=== PATIENT | male | born 1950 | race Caucasian/White ===

== ENCOUNTER 2023-05-21 16:21 | Emergency (ER) | payer OTHER ==
[2023-05-21 16:58] VITALS: BMI 33.4
[2023-05-21] MEDS ORDERED: SODIUM CHLORIDE 0.9% 500 ML INFUS.BAG IV ONE (17:35)
[2023-05-21 18:28] LABS: BASO % 0.6 % (0-2.0); EOS % 0.5 % (0-4.5); HEMATOCRIT 44.7 % (35.4-49); HEMOGLOBIN 15.7 GM/dL (11.7-16.9); LYMPH % 24.8 % (8-40); MCH 30.1 pg (25.7-33.7); MCHC 35.1 g/dl (32.0-35.9); MEAN CELL VOLUME 85.6 fl (80-96); MEAN PLT VOLUME 7.8 fl (7.5-11.1); MONO % 5.4 % (3.8-10.2); NEUT % 68.7 % (42.8-82.8); PLATELET COUNT 290 10^3/uL (134-434); RBC 5.22 M/mm3 (4.00-5.60); RDW 13.5 % (11.9-15.9); WHITE BLOOD COUNT 10.9 K/mm3 (4.0-10.0)
[2023-05-21 18:30] LABS: INR 1.09 (0.83-1.09); PROTHROMBIN TIME (PATIENT) 12.6 SEC (9.7-13.0)
[2023-05-21 18:32] LABS: ACTIVATED PTT 34.4 SECONDS (25.2-36.5)
[2023-05-21 18:37] LABS: VENOUS BASE EXCESS 1.2 mmol/L (-2-2); VENOUS PCO2 45.9 mmHg (38-52); VENOUS PH 7.386 (7.310-7.410)
[2023-05-21 18:44] LABS: POTASSIUM 4.1 mmol/L (3.5-5.1)
[2023-05-21 18:47] LABS: ALBUMIN 3.7 g/dl (3.4-5.0); BLOOD UREA NITROGEN 10.3 mg/dL (7-18)
[2023-05-21 18:50] LABS: CREATININE 0.7 mg/dL (0.55-1.3)
[2023-05-21 18:51] LABS: TOT PROT 7.5 g/dl (6.4-8.2)
[2023-05-21 18:53] LABS: BILIRUBIN,TOTAL 0.4 mg/dL (0.2-1)
[2023-05-21 19:04] LABS: URINE APPEARANCE CLEAR; URINE BILIRUBIN NEGATIVE (NEGATIVE); URINE COLOR YELLOW; URINE GLUCOSE (UA) 2+ (NEGATIVE); URINE KETONE NEGATIVE (NEGATIVE); URINE LEUK ESTERASE NEGATIVE (NEGATIVE); URINE NITRITE NEGATIVE (NEGATIVE); URINE PROTEIN NEGATIVE (NEGATIVE); URINE UROBILINOGEN 0.2 mg/dL (0.2-1.0)
[2023-05-21 19:09] VITALS: TEMP 98.4
[2023-05-21 20:54] VITALS: BP 161/131; RESP 20
[2023-05-21 20:55] VITALS: PULSE 89
== END 2023-05-21 21:56 | disposition left against medical advice (07) ==
LOC: JER 16:21
DX: R41.82 Altered mental status, unspecified (principal); E11.9 Type 2 diabetes mellitus without complications; I10 Essential (primary) hypertension; R35.0 Frequency of micturition; N39.498 Other specified urinary incontinence; Z20.822 Contact with and (suspected) exposure to COVID-19
CPT/HCPCS: 0241U-QW; 36415; 70450-TC; 71045-TC-FY; 72131-TC; 80053; 81003; 82553; 82803; 82962; 83605; 85025; 85610; 85730; 86850; 86900; 86901; 87040; 87086; 93005; 93010; 99285-25

== ENCOUNTER 2023-05-28 08:59 | Inpatient (IN) | payer OTHER ==
[2023-05-28 11:20] LABS: BASO % 0.9 % (0-2.0); EOS % 0.9 % (0-4.5); HEMATOCRIT 47.8 % (35.4-49); LYMPH % 35.4 % (8-40); MCHC 33.5 g/dl (32.0-35.9); MEAN CELL VOLUME 89.6 fl (80-96); MEAN PLT VOLUME 8.5 fl (7.5-11.1); MONO % 5.7 % (3.8-10.2); NEUT % 57.1 % (42.8-82.8); PH,URINE 5.5 (5.0-8.0); PLATELET COUNT 254 10^3/uL (134-434); RBC 5.34 M/mm3 (4.00-5.60); RDW 13.2 % (11.9-15.9); URINE APPEARANCE CLEAR; URINE BILIRUBIN NEGATIVE (NEGATIVE); URINE COLOR YELLOW; URINE GLUCOSE (UA) 1+ (NEGATIVE); URINE KETONE NEGATIVE (NEGATIVE); URINE LEUK ESTERASE NEGATIVE (NEGATIVE); URINE NITRITE NEGATIVE (NEGATIVE); URINE PROTEIN NEGATIVE (NEGATIVE); URINE UROBILINOGEN 0.2 mg/dL (0.2-1.0); WHITE BLOOD COUNT 8.3 K/mm3 (4.0-10.0)
[2023-05-28 11:27] LABS: INR 1.03 (0.83-1.09)
[2023-05-28 11:29] LABS: ACTIVATED PTT 37.4 SECONDS (25.2-36.5)
[2023-05-28 11:47] LABS: POTASSIUM 4.5 mmol/L (3.5-5.1)
[2023-05-28 11:48] LABS: PHOSPHOROUS 3.4 mg/dL (2.5-4.9)
[2023-05-28 11:49] LABS: ALBUMIN 3.9 g/dl (3.4-5.0); CALCIUM 8.9 mg/dL (8.5-10.1)
[2023-05-28 11:50] LABS: BLOOD UREA NITROGEN 7.6 mg/dL (7-18)
[2023-05-28 11:52] LABS: CREATININE 0.8 mg/dL (0.55-1.3)
[2023-05-28 11:54] LABS: BILIRUBIN,TOTAL 0.6 mg/dL (0.2-1); TOT PROT 7.9 g/dl (6.4-8.2)
[2023-05-28] MEDS ORDERED: ENOXAPARIN NA (PORCINE) 40 MG/0.4 ML DISP.SYRIN SQ ONE (13:14)
[2023-05-28] MEDS ORDERED: LOSARTAN POTASSIUM 50 MG TABLET PO ONE (13:30)
[2023-05-28] MEDS: PANTOPRAZOLE 40 MG TABLET PO SCH (13:51)
[2023-05-28] MEDS: ENOXAPARIN NA (PORCINE) 40 MG/0.4 ML DISP.SYRIN SQ SCH (13:51)
[2023-05-28] MEDS ORDERED: INSULIN (NOVOLOG) ASPART 100 UNITS/ML 10ML VIAL ONE (18:17)
[2023-05-28] MEDS: INSULIN SLIDING SCALE (NOVOLOG) 1 VIAL SQ SCH (18:33)
[2023-05-28] MEDS ORDERED: MELATONIN 5 MG TABLETS ONE (21:45)
[2023-05-28] MEDS ORDERED: MELATONIN 5 MG TABLETS PO ONE (21:45)
[2023-05-28] MEDS: LOSARTAN POTASSIUM 50 MG TABLET PO SCH (23:12)
[2023-05-29 00:50] VITALS: BMI 31.9
[2023-05-29] MEDS ORDERED: amLODIPine BESYLATE 10 MG TABLET (FP) PO ONE (06:35)
[2023-05-29] MEDS ORDERED: LOSARTAN POTASSIUM 50 MG TABLET PO SCH (10:00)
[2023-05-29] MEDS ORDERED: amLODIPine BESYLATE 10 MG TABLET (FP) PO SCH (10:00)
[2023-05-29] MEDS: LOSARTAN POTASSIUM 50 MG TABLET PO SCH ×2 (10:20→21:53)
[2023-05-29] MEDS: ENOXAPARIN NA (PORCINE) 40 MG/0.4 ML DISP.SYRIN SQ SCH (10:20)
[2023-05-29] MEDS: PANTOPRAZOLE 40 MG TABLET PO SCH (10:20)
[2023-05-29] MEDS: INSULIN SLIDING SCALE (NOVOLOG) 1 VIAL SQ SCH ×2 (12:01→17:39)
[2023-05-29] MEDS: LORazepam 2 MG/ML SDV VIAL IVPUSH PRN (14:43)
[2023-05-29] MEDS: TAMSULOSIN HCL 0.4 MG CAP PO SCH (21:53)
[2023-05-30] MEDS: INSULIN SLIDING SCALE (NOVOLOG) 1 VIAL SQ SCH ×3 (07:43→17:18)
[2023-05-30 08:36] LABS: CHOLESTEROL 215 mg/dL (50-200)
[2023-05-30 08:38] LABS: LDL CHOLESTEROL (ONLY SJRH) 151 mg/dL (5-100)
[2023-05-30 08:39] LABS: HDL CHOLESTEROL 42 mg/dL (40-60)
[2023-05-30] MEDS: PANTOPRAZOLE 40 MG TABLET PO SCH (09:54)
[2023-05-30] MEDS: ENOXAPARIN NA (PORCINE) 40 MG/0.4 ML DISP.SYRIN SQ SCH (09:54)
[2023-05-30] MEDS: amLODIPine BESYLATE 10 MG TABLET (FP) PO SCH (09:55)
[2023-05-30] MEDS: LOSARTAN 50MG/HCTZ 12.5MG 1 TAB PO SCH ×2 (09:55→21:43)
[2023-05-30] MEDS: ATORVASTATIN CA 40 MG TABLET (FP) PO SCH (21:43)
[2023-05-30] MEDS: TAMSULOSIN HCL 0.4 MG CAP PO SCH (21:43)
[2023-05-31] MEDS: MELATONIN 5 MG TABLETS PO PRN ×2 (00:25→22:14)
[2023-05-31] MEDS: LORazepam 2 MG/ML SDV VIAL IVPUSH PRN (00:25)
[2023-05-31] MEDS: INSULIN SLIDING SCALE (NOVOLOG) 1 VIAL SQ SCH ×3 (06:47→23:23)
[2023-05-31] MEDS ORDERED: INSULIN SLIDING SCALE (NOVOLOG) 1 VIAL SQ SCH (11:00)
[2023-05-31] MEDS: ENOXAPARIN NA (PORCINE) 40 MG/0.4 ML DISP.SYRIN SQ SCH (11:52)
[2023-05-31] MEDS: PANTOPRAZOLE 40 MG TABLET PO SCH (11:52)
[2023-05-31] MEDS: amLODIPine BESYLATE 10 MG TABLET (FP) PO SCH (11:53)
[2023-05-31] MEDS: LOSARTAN 50MG/HCTZ 12.5MG 1 TAB PO SCH ×2 (11:54→22:14)
[2023-05-31 12:20] LABS: BASO % 0.4 % (0-2.0); EOS % 0.3 % (0-4.5); HEMOGLOBIN 15.9 GM/dL (11.7-16.9); LYMPH % 22.5 % (8-40); MCH 30.3 pg (25.7-33.7); MCHC 35.4 g/dl (32.0-35.9); MEAN CELL VOLUME 85.6 fl (80-96); MEAN PLT VOLUME 8.3 fl (7.5-11.1); MONO % 8.1 % (3.8-10.2); NEUT % 68.7 % (42.8-82.8); PLATELET COUNT 302 10^3/uL (134-434); RBC 5.25 M/mm3 (4.00-5.60); RDW 13.3 % (11.9-15.9); WHITE BLOOD COUNT 12.9 K/mm3 (4.0-10.0)
[2023-05-31 15:29] LABS: URINE APPEARANCE CLOUDY; URINE BILIRUBIN 1+ (NEGATIVE); URINE COLOR DK YELLOW; URINE GLUCOSE (UA) 2+ (NEGATIVE); URINE KETONE TRACE (NEGATIVE); URINE LEUK ESTERASE NEGATIVE (NEGATIVE); URINE NITRITE NEGATIVE (NEGATIVE); URINE PROTEIN TRACE (NEGATIVE)
[2023-05-31] MEDS ORDERED: INSULIN (LEVEMIR) 100 UNITS/ML UNITS SQ SCH (22:00)
[2023-05-31] MEDS: ATORVASTATIN CA 40 MG TABLET (FP) PO SCH (22:13)
[2023-05-31] MEDS: TAMSULOSIN HCL 0.4 MG CAP PO SCH (22:14)
[2023-06-01] MEDS: INSULIN (LEVEMIR) 100 UNITS/ML UNITS SQ SCH ×2 (06:32→22:15)
[2023-06-01] MEDS: INSULIN SLIDING SCALE (NOVOLOG) 1 VIAL SQ SCH ×4 (06:33→22:13)
[2023-06-01] MEDS ORDERED: QUEtiapine FUMARATE 25 MG TABLET PO SCH (10:00)
[2023-06-01] MEDS: ENOXAPARIN NA (PORCINE) 40 MG/0.4 ML DISP.SYRIN SQ SCH (10:01)
[2023-06-01] MEDS: PANTOPRAZOLE 40 MG TABLET PO SCH (10:01)
[2023-06-01 10:23] LABS: BASO % 0.8 % (0-2.0); EOS % 0.4 % (0-4.5); HEMATOCRIT 43.3 % (35.4-49); HEMOGLOBIN 15.4 GM/dL (11.7-16.9); LYMPH % 25.1 % (8-40); MCH 30.7 pg (25.7-33.7); MCHC 35.6 g/dl (32.0-35.9); MEAN CELL VOLUME 86.1 fl (80-96); MEAN PLT VOLUME 8.6 fl (7.5-11.1); MONO % 8.9 % (3.8-10.2); NEUT % 64.8 % (42.8-82.8); PLATELET COUNT 333 10^3/uL (134-434); RBC 5.03 M/mm3 (4.00-5.60); RDW 13.6 % (11.9-15.9); WHITE BLOOD COUNT 12.7 K/mm3 (4.0-10.0)
[2023-06-01] MEDS: LOSARTAN 50MG/HCTZ 12.5MG 1 TAB PO SCH ×3 (10:46→17:54)
[2023-06-01 11:17] LABS: ERYTHROCYTE SEDIMENTATION RATE 62 mm/hr (0-20)
[2023-06-01] MEDS ORDERED: INSULIN SLIDING SCALE (NOVOLOG) 1 VIAL SQ ONE (11:51)
[2023-06-01] MEDS ORDERED: MINERAL OIL ENEMA 133 ML ENEMA RC ONE (19:36)
[2023-06-01] MEDS: POLYETHYLENE GLYCOL (HEALTHYLAX) 3350 17 GM PACKET PO SCH ×2 (20:23→22:23)
[2023-06-01] MEDS: ATORVASTATIN CA 40 MG TABLET (FP) PO SCH (22:23)
[2023-06-01] MEDS: OLANZapine 5 MG TABLET PO SCH (22:23)
[2023-06-01] MEDS: TAMSULOSIN HCL 0.4 MG CAP PO SCH (22:23)
[2023-06-02] MEDS: INSULIN SLIDING SCALE (NOVOLOG) 1 VIAL SQ SCH ×4 (06:06→23:03)
[2023-06-02] MEDS: INSULIN (LEVEMIR) 100 UNITS/ML UNITS SQ SCH ×2 (06:08→23:02)
[2023-06-02 09:46] LABS: BASO % 0.7 % (0-2.0); EOS % 1.5 % (0-4.5); HEMATOCRIT 45.8 % (35.4-49); MCH 30.6 pg (25.7-33.7); MCHC 34.9 g/dl (32.0-35.9); MEAN CELL VOLUME 87.6 fl (80-96); MEAN PLT VOLUME 8.7 fl (7.5-11.1); NEUT % 54.8 % (42.8-82.8); PLATELET COUNT 250 10^3/uL (134-434); RBC 5.23 M/mm3 (4.00-5.60); RDW 13.5 % (11.9-15.9); WHITE BLOOD COUNT 9.7 K/mm3 (4.0-10.0)
[2023-06-02] MEDS: LOSARTAN 50MG/HCTZ 12.5MG 1 TAB PO SCH ×2 (10:00→17:45)
[2023-06-02] MEDS: POLYETHYLENE GLYCOL (HEALTHYLAX) 3350 17 GM PACKET PO SCH ×2 (10:01→21:31)
[2023-06-02] MEDS: ENOXAPARIN NA (PORCINE) 40 MG/0.4 ML DISP.SYRIN SQ SCH (10:01)
[2023-06-02] MEDS: PANTOPRAZOLE 40 MG TABLET PO SCH (10:01)
[2023-06-02] MEDS: TAMSULOSIN HCL 0.4 MG CAP PO SCH (21:33)
[2023-06-02] MEDS: ASCORBIC ACID 500 MG TABLET (FP) PO SCH (21:34)
[2023-06-02] MEDS: OLANZapine 5 MG TABLET PO SCH (21:34)
[2023-06-02] MEDS: ATORVASTATIN CA 40 MG TABLET (FP) PO SCH (21:38)
[2023-06-03] MEDS: INSULIN SLIDING SCALE (NOVOLOG) 1 VIAL SQ SCH ×4 (06:36→22:13)
[2023-06-03] MEDS: INSULIN (LEVEMIR) 100 UNITS/ML UNITS SQ SCH ×2 (06:37→22:14)
[2023-06-03] MEDS: LOSARTAN 50MG/HCTZ 12.5MG 1 TAB PO SCH ×2 (08:40→18:33)
[2023-06-03] MEDS: PANTOPRAZOLE 40 MG TABLET PO SCH (09:25)
[2023-06-03] MEDS: ASCORBIC ACID 500 MG TABLET (FP) PO SCH ×2 (09:25→22:03)
[2023-06-03] MEDS: ENOXAPARIN NA (PORCINE) 40 MG/0.4 ML DISP.SYRIN SQ SCH (09:25)
[2023-06-03] MEDS: POLYETHYLENE GLYCOL (HEALTHYLAX) 3350 17 GM PACKET PO SCH ×2 (09:28→22:04)
[2023-06-03 10:03] LABS: BASO % 0.5 % (0-2.0); EOS % 0.5 % (0-4.5); HEMATOCRIT 49.4 % (35.4-49); LYMPH % 23.8 % (8-40); MCH 30.1 pg (25.7-33.7); MCHC 34.5 g/dl (32.0-35.9); MONO % 7.4 % (3.8-10.2); NEUT % 67.8 % (42.8-82.8); PLATELET COUNT 311 10^3/uL (134-434); RBC 5.67 M/mm3 (4.00-5.60); RDW 13.3 % (11.9-15.9); WHITE BLOOD COUNT 10.7 K/mm3 (4.0-10.0)
[2023-06-03 10:59] LABS: ERYTHROCYTE SEDIMENTATION RATE 58 mm/hr (0-20)
[2023-06-03] MEDS: OLANZapine 5 MG TABLET PO SCH (22:03)
[2023-06-03] MEDS: ATORVASTATIN CA 40 MG TABLET (FP) PO SCH (22:03)
[2023-06-03] MEDS: TAMSULOSIN HCL 0.4 MG CAP PO SCH (22:03)
[2023-06-04] MEDS: INSULIN (LEVEMIR) 100 UNITS/ML UNITS SQ SCH ×2 (06:46→21:47)
[2023-06-04] MEDS: INSULIN SLIDING SCALE (NOVOLOG) 1 VIAL SQ SCH ×4 (06:46→21:48)
[2023-06-04] MEDS: LOSARTAN 50MG/HCTZ 12.5MG 1 TAB PO SCH ×2 (09:49→17:54)
[2023-06-04 09:54] LABS: BASO % 0.4 % (0-2.0); EOS % 0.4 % (0-4.5); HEMOGLOBIN 15.2 GM/dL (11.7-16.9); LYMPH % 25.8 % (8-40); MCH 30.3 pg (25.7-33.7); MCHC 34.5 g/dl (32.0-35.9); MEAN CELL VOLUME 87.9 fl (80-96); MEAN PLT VOLUME 8.2 fl (7.5-11.1); MONO % 8.5 % (3.8-10.2); NEUT % 64.9 % (42.8-82.8); PLATELET COUNT 326 10^3/uL (134-434); RBC 5.01 M/mm3 (4.00-5.60); RDW 13.5 % (11.9-15.9); WHITE BLOOD COUNT 9.5 K/mm3 (4.0-10.0)
[2023-06-04] MEDS: PANTOPRAZOLE 40 MG TABLET PO SCH (10:20)
[2023-06-04] MEDS: ENOXAPARIN NA (PORCINE) 40 MG/0.4 ML DISP.SYRIN SQ SCH (10:20)
[2023-06-04] MEDS: ASCORBIC ACID 500 MG TABLET (FP) PO SCH ×2 (10:20→21:39)
[2023-06-04] MEDS: POLYETHYLENE GLYCOL (HEALTHYLAX) 3350 17 GM PACKET PO SCH ×2 (10:22→21:41)
[2023-06-04] MEDS: ATORVASTATIN CA 40 MG TABLET (FP) PO SCH (21:39)
[2023-06-04] MEDS: TAMSULOSIN HCL 0.4 MG CAP PO SCH (21:40)
[2023-06-04] MEDS: OLANZapine 5 MG TABLET PO SCH (21:42)
[2023-06-05] MEDS: INSULIN SLIDING SCALE (NOVOLOG) 1 VIAL SQ SCH ×4 (06:32→21:25)
[2023-06-05] MEDS: INSULIN (LEVEMIR) 100 UNITS/ML UNITS SQ SCH ×3 (06:33→21:29)
[2023-06-05 07:50] LABS: BASO % 0.5 % (0-2.0); EOS % 1.5 % (0-4.5); HEMATOCRIT 42.4 % (35.4-49); HEMOGLOBIN 14.4 GM/dL (11.7-16.9); LYMPH % 36.5 % (8-40); MCH 29.7 pg (25.7-33.7); MCHC 33.8 g/dl (32.0-35.9); MEAN CELL VOLUME 87.7 fl (80-96); MEAN PLT VOLUME 8.5 fl (7.5-11.1); MONO % 8.1 % (3.8-10.2); NEUT % 53.4 % (42.8-82.8); PLATELET COUNT 292 10^3/uL (134-434); RBC 4.84 M/mm3 (4.00-5.60); RDW 13.2 % (11.9-15.9); WHITE BLOOD COUNT 10.7 K/mm3 (4.0-10.0)
[2023-06-05] MEDS: LOSARTAN 50MG/HCTZ 12.5MG 1 TAB PO SCH ×2 (09:42→17:10)
[2023-06-05] MEDS: ASCORBIC ACID 500 MG TABLET (FP) PO SCH ×2 (10:30→21:24)
[2023-06-05] MEDS: POLYETHYLENE GLYCOL (HEALTHYLAX) 3350 17 GM PACKET PO SCH ×2 (10:30→21:24)
[2023-06-05] MEDS: PANTOPRAZOLE 40 MG TABLET PO SCH (10:30)
[2023-06-05] MEDS: ENOXAPARIN NA (PORCINE) 40 MG/0.4 ML DISP.SYRIN SQ SCH (10:30)
[2023-06-05] MEDS: OLANZapine 5 MG TABLET PO SCH (21:24)
[2023-06-05] MEDS: TAMSULOSIN HCL 0.4 MG CAP PO SCH (21:24)
[2023-06-05] MEDS: ATORVASTATIN CA 40 MG TABLET (FP) PO SCH (21:24)
[2023-06-06] MEDS ORDERED: INSULIN (LEVEMIR) 100 UNITS/ML UNITS SQ SCH (04:40)
[2023-06-06] MEDS ORDERED: INSULIN (LEVEMIR) 100 UNITS/ML UNITS SQ ONE ×2 (05:40→06:24)
[2023-06-06] MEDS: INSULIN SLIDING SCALE (NOVOLOG) 1 VIAL SQ SCH ×4 (06:07→21:28)
[2023-06-06] MEDS: LOSARTAN 50MG/HCTZ 12.5MG 1 TAB PO SCH ×2 (08:29→17:16)
[2023-06-06] MEDS: PANTOPRAZOLE 40 MG TABLET PO SCH (09:16)
[2023-06-06] MEDS: ENOXAPARIN NA (PORCINE) 40 MG/0.4 ML DISP.SYRIN SQ SCH (09:17)
[2023-06-06] MEDS: ASCORBIC ACID 500 MG TABLET (FP) PO SCH ×2 (09:17→21:28)
[2023-06-06] MEDS: POLYETHYLENE GLYCOL (HEALTHYLAX) 3350 17 GM PACKET PO SCH ×2 (09:17→21:28)
[2023-06-06 10:49] LABS: BASO % 0.6 % (0-2.0); EOS % 1.6 % (0-4.5); HEMATOCRIT 43.6 % (35.4-49); HEMOGLOBIN 14.8 GM/dL (11.7-16.9); LYMPH % 30.3 % (8-40); MCH 29.9 pg (25.7-33.7); MCHC 33.9 g/dl (32.0-35.9); MEAN CELL VOLUME 88.4 fl (80-96); MEAN PLT VOLUME 8.9 fl (7.5-11.1); MONO % 8.3 % (3.8-10.2); NEUT % 59.2 % (42.8-82.8); PLATELET COUNT 292 10^3/uL (134-434); RBC 4.93 M/mm3 (4.00-5.60); RDW 13.1 % (11.9-15.9); WHITE BLOOD COUNT 9.6 K/mm3 (4.0-10.0)
[2023-06-06 11:43] LABS: ERYTHROCYTE SEDIMENTATION RATE 63 mm/hr (0-20)
[2023-06-06] MEDS: INSULIN (LEVEMIR) 100 UNITS/ML UNITS SQ SCH ×2 (13:41→21:28)
[2023-06-06] MEDS: TAMSULOSIN HCL 0.4 MG CAP PO SCH (21:28)
[2023-06-06] MEDS: ATORVASTATIN CA 40 MG TABLET (FP) PO SCH (21:28)
[2023-06-06] MEDS: OLANZapine 5 MG TABLET PO SCH (21:28)
[2023-06-07] MEDS ORDERED: ACETAMINOPHEN 325 MG TABLET (FP) PO PRN (00:05)
[2023-06-07] MEDS: INSULIN (LEVEMIR) 100 UNITS/ML UNITS SQ SCH (06:22)
[2023-06-07] MEDS: INSULIN SLIDING SCALE (NOVOLOG) 1 VIAL SQ SCH ×3 (06:22→17:34)
[2023-06-07] MEDS ORDERED: INSULIN SLIDING SCALE (NOVOLOG) 1 VIAL SQ ONE (06:25)
[2023-06-07 06:34] VITALS: RESP 18
[2023-06-07] MEDS: LOSARTAN 50MG/HCTZ 12.5MG 1 TAB PO SCH ×2 (08:42→17:34)
[2023-06-07] MEDS: PANTOPRAZOLE 40 MG TABLET PO SCH (09:24)
[2023-06-07] MEDS: ASCORBIC ACID 500 MG TABLET (FP) PO SCH ×2 (09:24→23:00)
[2023-06-07] MEDS: POLYETHYLENE GLYCOL (HEALTHYLAX) 3350 17 GM PACKET PO SCH ×2 (09:24→23:00)
[2023-06-07] MEDS: ENOXAPARIN NA (PORCINE) 40 MG/0.4 ML DISP.SYRIN SQ SCH (09:24)
[2023-06-07] MEDS: ATORVASTATIN CA 40 MG TABLET (FP) PO SCH (23:00)
[2023-06-07] MEDS: TAMSULOSIN HCL 0.4 MG CAP PO SCH (23:00)
[2023-06-07] MEDS: OLANZapine 5 MG TABLET PO SCH (23:00)
[2023-06-08] MEDS: INSULIN SLIDING SCALE (NOVOLOG) 1 VIAL SQ SCH ×4 (00:08→18:17)
[2023-06-08] MEDS: INSULIN (LEVEMIR) 100 UNITS/ML UNITS SQ SCH ×2 (00:08→06:09)
[2023-06-08] MEDS: LOSARTAN 50MG/HCTZ 12.5MG 1 TAB PO SCH (08:55)
[2023-06-08] MEDS: ENOXAPARIN NA (PORCINE) 40 MG/0.4 ML DISP.SYRIN SQ SCH (09:23)
[2023-06-08] MEDS: PANTOPRAZOLE 40 MG TABLET PO SCH (09:23)
[2023-06-08] MEDS: POLYETHYLENE GLYCOL (HEALTHYLAX) 3350 17 GM PACKET PO SCH (09:23)
[2023-06-08] MEDS: ASCORBIC ACID 500 MG TABLET (FP) PO SCH (09:23)
[2023-06-08 11:40] LABS: BASO % 0.8 % (0-2.0); EOS % 1.5 % (0-4.5); HEMATOCRIT 41.1 % (35.4-49); HEMOGLOBIN 14.3 GM/dL (11.7-16.9); MCH 30.3 pg (25.7-33.7); MCHC 34.9 g/dl (32.0-35.9); MEAN PLT VOLUME 8.8 fl (7.5-11.1); MONO % 9.8 % (3.8-10.2); NEUT % 58.9 % (42.8-82.8); PLATELET COUNT 272 10^3/uL (134-434); RBC 4.72 M/mm3 (4.00-5.60); RDW 13.1 % (11.9-15.9); WHITE BLOOD COUNT 10.1 K/mm3 (4.0-10.0)
[2023-06-08 12:35] VITALS: BP 138/67; PULSE 68; TEMP 98.2
== END 2023-06-08 17:51 | DRG 884 ==
LOC: JER 08:59 → JERBED 12:11 → OBSVTOIN 12:37 → J5S 22:38
PROVIDERS: ADMIT Internal Medicine; ATTEND Internal Medicine
DX: F03.90 Unspecified dementia, unspecified severity, without behavioral disturbance, psychotic disturbance, mood disturbance, and anxiety (principal); I10 Essential (primary) hypertension; E11.9 Type 2 diabetes mellitus without complications; M62.81 Muscle weakness (generalized); R41.82 Altered mental status, unspecified; R15.9 Full incontinence of feces; M50.30 Other cervical disc degeneration, unspecified cervical region; R32 Unspecified urinary incontinence; N40.0 Benign prostatic hyperplasia without lower urinary tract symptoms; E66.9 Obesity, unspecified; Z68.31 Body mass index [BMI] 31.0-31.9, adult
CPT/HCPCS: 36415; 70450-TC; 71045-TC-FY; 72125-TC; 76856-TC; 80053; 80061; 81003; 82140; 82962; 83735; 84100; 84484; 85025; 85610; 85651; 85730; 86140; 86480; 86850; 86900; 86901; 87086; 87186; 87635; 93005; 93010; 97116-GP; 97162-GP; 99285-25; G0378